=== PATIENT | male | born 1970 | race Caucasian/White ===

== ENCOUNTER 2016-04-21 19:15 | Inpatient (IN) | payer OTHER ==
[~2016-04-21] VITALS: Ht 175.3 cm; Wt 96.5 kg
[~2016-04-21 19:15] MED LIST: ROXICODONE5 MG PO
[2016-04-21 20:18] LABS: EOSINOPHIL (%) 0.8 % (0-5); EOSINOPHIL COUNT 0.1 K/uL (0-0.3); HEMATOCRIT 46.1 % (38.0-50.0); IMMATURE GRANULOCYTE (%) 0.3 % (0.0-0.7); IMMATURE GRANULOCYTE COUNT 0.2 K/uL; LYMPHOCYTE COUNT 0.6 K/uL (1.0-2.8); MCH 29.1 PG (29.0-34.0); MCHC 33.2 G/DL (30.0-36.0); MCV 87.8 FL (86-99); MEAN PLAT.VOLUME 9.9 uM^3 (9.0-12.4); MONOCYTE (%) 9.4 % (3-12); MONOCYTE COUNT 0.7 K/uL (0-0.8); NEUTROPHIL (%) 80.9 % (45-76); PLATELET COUNT 180 K/uL (156-360); RBC DIS.WIDTH-CV 13.5 % (11.8-14.6); RBC DIS.WIDTH-SD 43.2 % (39-53); RED BLOOD COUNT 5.25 M/uL (4.00-5.50); WHITE BLOOD COUNT 7.4 K/uL (4.1-10.2)
[2016-04-21 20:25] LABS: INFLUENZA A VIRAL ANTIGEN NEGATIVE; INFLUENZA B VIRAL ANTIGEN NEGATIVE
[2016-04-21 20:31] LABS: CHLORIDE 105 mEq/L (99-109); POTASSIUM 3.7 mEq/L (3.7-5.4); SODIUM 139 mEq/L (136-147)
[2016-04-21 20:33] LABS: GLUCOSE 114 mg/dL (70-99)
[2016-04-21 20:34] LABS: ANION GAP 14 MEQ/L (2-14)
[2016-04-21 20:35] LABS: TOTAL BILIRUBIN 1.9 mg/dL (0.0-1.0)
[2016-04-21 20:36] LABS: SERUM ETHYL ALCOHOL 159 mg/dL
[2016-04-21 20:37] LABS: ALKALINE PHOSPHATASE 61 IU/L (3-129); GFR ESTIMATE (CALCULATED) > 59 mL/min/
[2016-04-21 20:38] LABS: UREA NITROGEN (BUN) 10 mg/dL (9-23)
[2016-04-21 20:40] LABS: LIPASE 33 U/L (1.0-51.0)
[2016-04-21 20:45] LABS: INTERNAL CONTROL VALID? YES; MONOSPOT (MONONUCLEOSIS SEROL) NEGATIVE
[2016-04-21] MEDS ORDERED: MOTRIN800 MG PO (21:44)
[2016-04-21] MEDS ORDERED: ADVIL200 MG PO (21:44)
[2016-04-21 23:37] LABS: BILIRUBIN NEGATIVE; BLOOD NEGATIVE; COLOR YELLOW ((YELLOW)); GLUCOSE (STRIP) NEGATIVE; KETONES 20; LEUKOCYTES NEGATIVE; NITRITE NEGATIVE; PROTEIN (STRIP) NEGATIVE; SPECIFIC GRAVITY 1.017 (1.000-1.030); UROBILINOGEN 0.2 MG/DL (0.2-1.0)
[2016-04-21 23:50] LABS: ADD MIUA? NO; UCUL ADDED? NO
[2016-04-22] VITALS (7 sets, daily range): BP systolic 108–146; BP diastolic 64–88
[2016-04-22 06:42] LABS: EOSINOPHIL (%) 0 % (0-5); HEMATOCRIT 42.6 % (38.0-50.0); LYMPHOCYTE COUNT 0.6 K/uL (1.0-2.8); MCH 30.2 PG (29.0-34.0); MCHC 33.8 G/DL (30.0-36.0); MCV 89.3 FL (86-99); MEAN PLAT.VOLUME 10.4 uM^3 (9.0-12.4); MONOCYTE (%) 9.2 % (3-12); MONOCYTE COUNT 0.5 K/uL (0-0.8); NEUTROPHIL (%) 80.1 % (45-76); NEUTROPHIL COUNT 4.4 K/uL (1.8-6.4); PLATELET COUNT 142 K/uL (156-360); RBC DIS.WIDTH-CV 13.5 % (11.8-14.6); RBC DIS.WIDTH-SD 44.2 % (39-53); RED BLOOD COUNT 4.77 M/uL (4.00-5.50); WHITE BLOOD COUNT 5.5 K/uL (4.1-10.2)
[2016-04-22 07:04] LABS: ALKALINE PHOSPHATASE 36 IU/L (3-129); ANION GAP 9 MEQ/L (2-14); CHLORIDE 105 MEQ/L (99-109); GFR ESTIMATE (CALCULATED) > 59 mL/min/; GLUCOSE 131 mg/dL (70-99); POTASSIUM 3.9 MEQ/L (3.7-5.4); SAMPLE HEMOLYSIS CHECK 0; SAMPLE ICTERIC CHECK 0; SAMPLE LIPEMIA CHECK 0; SODIUM 135 MEQ/L (136-147); TOTAL BILIRUBIN 2.3 MG/DL (0.0-1.0); UREA NITROGEN (BUN) 9 mg/dL (9-23)
[2016-04-22 14:02] LABS: C DIFF TOXIN NEGATIVE (NEGATIVE); PROBE CHECK PASS; SPECIMEN PROCESSING CONTROL PASS
[2016-04-23 04:09] VITALS: BP 108/61
[2016-04-23 07:50] VITALS: BP 134/88
[2016-04-23 09:15] LABS: ALKALINE PHOSPHATASE 39 IU/L (3-129); ANION GAP 10 MEQ/L (2-14); CHLORIDE 107 MEQ/L (99-109); DIRECT BILIRUBIN 0.3 mg/dL (0.0-0.3); GFR ESTIMATE (CALCULATED) > 59 mL/min/; GLUCOSE 106 mg/dL (70-99); POTASSIUM 3.4 MEQ/L (3.7-5.4); SAMPLE HEMOLYSIS CHECK 0; SAMPLE ICTERIC CHECK 0; SAMPLE LIPEMIA CHECK 0; SODIUM 140 MEQ/L (136-147); UREA NITROGEN (BUN) 14 mg/dL (9-23)
[2016-04-23 09:35] LABS: HEMATOCRIT 44.8 % (38.0-50.0); MCH 30.3 PG (29.0-34.0); MCHC 34.4 G/DL (30.0-36.0); MEAN PLAT.VOLUME 10.6 uM^3 (9.0-12.4); PLATELET COUNT 129 K/uL (156-360); RBC DIS.WIDTH-SD 45.1 % (39-53); RED BLOOD COUNT 5.09 M/uL (4.00-5.50)
[2016-04-23 09:36] LABS: WHITE BLOOD COUNT 7.2 K/uL (4.1-10.2)
[2016-04-23 11:35] VITALS: BP 147/96
[2016-04-23 14:47] VITALS: BP 140/92
[2016-04-23] MEDS ORDERED: Thiamine,Vitamin B1 PO (15:07)
[2016-04-23] MEDS ORDERED: CIPRO500 MG PO (15:07)
[2016-04-23] MEDS ORDERED: FOLIC ACID1 MG PO (15:07)
[2016-04-23] MEDS ORDERED: LOPERAMIDE2 MG PO (15:07)
[2016-04-23] MEDS ORDERED: METRONIDAZOLE500 MG PO (15:07)
[2016-04-23] MEDS ORDERED: CARDIZEM CD120 M1 PO (15:07)
== END 2016-04-23 17:49 | disposition home or self-care (01) | DRG 392 ==
LOC: EME → EDBD 19:15 → EME 19:15 → 5EAST 23:36 → EDOF 23:36 → 5EAST 04-22 00:51
PROVIDERS: Emergency Medicine; Hospitalist
DX: K52.9 Noninfective gastroenteritis and colitis, unspecified (principal); F10.239 Alcohol dependence with withdrawal, unspecified; R74.0 Nonspecific elevation of levels of transaminase and lactic acid dehydrogenase [LDH]; I10 Essential (primary) hypertension; E78.5 Hyperlipidemia, unspecified
CPT/HCPCS: 71010; 74177; 80048; 80053; 80076; 81003; 83605; 83690; 85025; 85027; 86308; 87040; 87177; 87493; 87502; 87801; 99281; 99285; G0480; J0744; J1644; J1885; J2060; J2405; J2765; J3411; J7030; S0028; S0030

== ENCOUNTER 2017-04-24 19:15 | Emergency (ER) | payer OTHER ==
[~2017-04-24] VITALS: Ht 175.3 cm; Wt 98.7 kg
[~2017-04-24 19:15] MED LIST changes: +ADVIL200 MG PO; +CARDIZEM CD120 M1 PO; +CIPRO500 MG PO; +FOLIC ACID1 MG PO; +LOPERAMIDE2 MG PO; +METRONIDAZOLE500 MG PO; +MOTRIN800 MG PO; +Thiamine,Vitamin B1 PO
[2017-04-24] MEDS ORDERED: NAPROXEN500 MG PO (22:30)
[2017-04-24] MEDS ORDERED: VALIUM5 MG PO (22:30)
[2017-04-24] MEDS ORDERED: LIDODERM 5% P1 PATCH TD (22:30)
[2017-04-25 01:11] VITALS: BP 136/96
== END 2017-04-25 01:13 | disposition home or self-care (01) ==
LOC: EME 19:15
DX: M54.5 Low back pain (principal); Z96.652 Presence of left artificial knee joint
CPT/HCPCS: 99281; 99284; J1100; J1885